=== PATIENT | female | born 1960 | race Caucasian/White ===

== ENCOUNTER 2018-07-12 14:02 | Emergency (ER) | payer MEDICAID ==
[~2018-07-12] VITALS: Ht 172.7 cm; Wt 71.0 kg
[~2018-07-12 14:02] MED LIST: HYDR-3686 PO; HYDR28.457 TP
[2018-07-12] MEDS ORDERED: CHLO25CA10 PO (14:52)
[2018-07-12 15:53] VITALS: BP 111/67
== END 2018-07-12 15:58 | disposition home or self-care (01) ==
LOC: ER 14:02
DX: F10.10 Alcohol abuse, uncomplicated (principal); Z02.89 Encounter for other administrative examinations; F17.200 Nicotine dependence, unspecified, uncomplicated; Z79.899 Other long term (current) drug therapy; Z98.51 Tubal ligation status; Y90.9 Presence of alcohol in blood, level not specified
CPT/HCPCS: 99283

== ENCOUNTER 2018-08-14 15:20 | Emergency (ER) | payer MEDICAID ==
[~2018-08-14] VITALS: Ht 162.6 cm; Wt 66.0 kg
[~2018-08-14 15:20] MED LIST changes: +CHLO25CA10 PO
[2018-08-14 15:42] VITALS: BP 112/55
[2018-08-14] MEDS ORDERED: ondansetron/PF 4mg/2ml inj IV ONE (16:15)
[2018-08-14] MEDS ORDERED: folic acid 1mg tablet PO ONE (16:15)
[2018-08-14] MEDS ORDERED: thiamine 100mg tablet PO ONE (16:15)
[2018-08-14] MEDS ORDERED: normal saline 1000ml 1,000 ML IV ONE (16:15)
[2018-08-14 17:13] LABS: EOSINOPHILS % (AUTO) 1.1 % (0-6); HEMATOCRIT 33.4 % (35.0-45.0); HEMOGLOBIN 11.5 g/dl (12.0-16.0); LYMPHOCYTES # (AUTO) 1.6 X10'3 (1.1-4.8); LYMPHOCYTES % (AUTO) 41.8 % (21-51); MEAN CORPUSCULAR HEMOGLOBIN 38.9 PG (27.0-31.0); MEAN CORPUSCULAR HGB CONC 34.5 g/dL (33.0-36.5); MEAN CORPUSCULAR VOLUME 112.7 FL (78-98); MEAN PLATELET VOLUME 7.2 FL (7.4-10.4); MONOCYTES # (AUTO) 0.2 X10'3 (0-0.9); MONOCYTES % (AUTO) 6.6 % (2-12); NEUTROPHILS # (AUTO) 1.9 X10'3 (1.8-7.7); NEUTROPHILS % (AUTO) 49.5 % (42-75); PLATELET COUNT 117 X10'3 (140-440); RED BLOOD COUNT 2.96 X10'6 (4.20-5.60); RED CELL DISTRIBUTION WIDTH 16.9 % (11.5-14.5); WHITE BLOOD COUNT 3.8 X10'3 (4.5-11.0)
[2018-08-14 17:20] LABS: ALANINE AMINOTRANSFERASE 126 U/L (12-78); ALBUMIN 2.9 G/DL (3.4-5.0); ALBUMIN/GLOBULIN RATIO 0.7 (1.1-1.5); ALKALINE PHOSPHATASE 146 IU/L (46-116); ANION GAP 14 (8-16); ASPARTATE AMINO TRANSFERASE 428 U/L (10-37); BLOOD UREA NITROGEN 10 MG/DL (7-18); BUN/CREATININE RATIO 17.2 (6.6-38.0); CALCIUM 8.6 MG/DL (8.5-10.1); CHLORIDE 100 MMOL/L (99-107); CREATININE 0.58 MG/DL (0.40-0.90); GLUCOSE 72 MG/DL (70-104); POTASSIUM 3.6 MMOL/L (3.5-5.1); SODIUM 140 MMOL/L (135-145); TOTAL CARBON DIOXIDE 26.4 MMOL/L (24-32); TOTAL PROTEIN 6.8 G/DL (6.4-8.2); eGFR > 90 ML/MIN
[2018-08-14] MEDS ORDERED: ONDA4TAB6 PO (17:39)
[2018-08-14 17:43] LABS: NUCLEATED RED BLOOD CELLS 1 /100WBC (0-0); PLATELET ESTIMATE DECREASED; TOTAL CELLS COUNTED 100
[2018-08-14 17:44] LABS: ANISOCYTOSIS 1+; POLYCHROMASIA FEW; TARGET CELLS FEW
== END 2018-08-14 17:58 | disposition left against medical advice (07) ==
LOC: ER 15:20
DX: F10.129 Alcohol abuse with intoxication, unspecified (principal); Z79.899 Other long term (current) drug therapy; Z98.51 Tubal ligation status; Y90.9 Presence of alcohol in blood, level not specified
CPT/HCPCS: 36415; 80053; 85025; 96374; 99284; J2405; J7030